=== PATIENT | female | born 1965 | race American Indian/Alaskan Native ===

== ENCOUNTER 2018-03-14 09:44 | Emergency (ER) | payer SELFPAY ==
[2018-03-14 10:02] VITALS: BP 154/94
[2018-03-14] MEDS ORDERED: DIFLUCAN PO ONE (10:29)
--- NOTE | 2018-03-14 10:33 | Emergency Department Report ---
ED Female HPI - General Chief complaint: Urogenital-Female Stated complaint: BLADDER INFECTION Time Seen by Provider: 03/14/18 10:24 Source: patient Mode of arrival: Ambulatory Limitations: No Limitations - History of Present Illness Initial comments: Patient is a 52 -year-old female who is presenting with a yeast infection. Patient a week ago was treated for a urinary tract infection now has a thick white vaginal discharge with odor. Patient along her has any dysuria and feels as though her urinary tract symptoms have improved she's tried to take Monistat without relief - Related Data Previous Rx's Medication Instructions Recorded Last Taken Type Fluconazole [Diflucan TAB] 150 mg PO ONCE #1 tablet 03/14/18 Unknown Rx Allergies Allergy/AdvReac Type Severity Reaction Status Date / Time No Known Allergies Allergy Unverified 03/14/18 09:59 ED Review of Systems ROS: Stated complaint: BLADDER INFECTION Other details as noted in HPI Comment: All other systems reviewed and negative ED Past Medical Hx - Past Medical History Previous Medical History?: No - Surgical History Past Surgical History?: Yes Additional Surgical History: betito placed in left leg and skin graft - Social History Smoking Status: Never Smoker Substance Use Type: Alcohol - Medications Home Medications: Home Medications Medication Instructions Recorded Confirmed Last Taken Type Fluconazole [Diflucan TAB] 150 mg PO ONCE #1 tablet 03/14/18 Unknown Rx ED Physical Exam - General Limitations: No Limitations General appearance: alert, in no apparent distress - Head Head exam: Present: atraumatic, normocephalic - Eye Eye exam: Present: normal appearance - Respiratory Respiratory exam: Present: normal lung sounds bilaterally. Absent: respiratory distress - Cardiovascular Cardiovascular Exam: Present: regular rate, normal rhythm. Absent: systolic murmur, diastolic murmur, rubs, gallop - GI/Abdominal GI/Abdominal exam: Present: soft, normal bowel sounds - External exam: Present: other (deffered) ED Course Vital Signs 03/14/18 09:59 Temperature 98.6 F Pulse Rate 80 Respiratory 18 Rate Blood Pressure 154/94 O2 Sat by Pulse 98 Oximetry ED Medical Decision Making - Medical Decision Making Patient be started on Diflucan given a protrusion for an additional Diflucan if symptoms not improved to be taken in 1 week. Critical care attestation.: If time is entered above; I have spent that time in minutes in the direct care of this critically ill patient, excluding procedure time. ED Disposition Clinical Impression: Yeast vaginitis Disposition: DC-01 TO HOME OR SELFCARE Is pt being admited?: No Does the pt Need Aspirin: No Condition: Stable Prescriptions: Fluconazole [Diflucan TAB] 150 mg PO ONCE #1 tablet Referrals: PRIMARY CARE, [Primary Care Provider] - 3-5 Days
== END 2018-03-14 10:39 | disposition home or self-care (01) ==
LOC: ED 09:44
DX: B37.3 Candidiasis of vulva and vagina (principal)
CPT/HCPCS: 99282